=== PATIENT | female | born 1990 | race African-American/Black ===

== ENCOUNTER 2022-12-01 10:32 | Emergency (ER) | payer MEDICAID, SELFPAY ==
[2022-12-01 10:44] VITALS: BP 133/97; PULSE 98; RESP 16; TEMP 36.3; O2SAT 100; BMI 28.3
--- NOTE | 2022-12-01 11:30 | ED.NURSE ---
Patient was discharged home with 2 written prescriptions. One was amoxicillin 500mg TID and Toradol 10mg TID PRN. These were written prescriptions by Dr. Moe as computer system was down. Patient instructed to follow up with her dentist. All questions answered and left via ambulatory.
--- NOTE | 2022-12-09 15:25 | ED.DENTAL ---
HPI - Dental/Oral General Chief complaint: Dental/Oral/Mouth Injury/Pain Stated complaint: jaw pain Time Seen by Provider: 12/01/22 12:19 History of Present Illness HPI Narrative: This patient comes in on December 01 2022 because of dental pain. I am writing this note a week later as this occurred when a time when the computers were not operating properly and was unable to generate a provider note. The patient has been seeing a dentist and has an appointment in the next few days. She has worsening dental pain and states that there is a need for root canal. She has not had any fevers. There is no facial swelling. Related Data Home Medications Medication Instructions Recorded Confirmed No Known Home Medications 12/01/22 12/01/22 Allergies Allergy/AdvReac Type Severity Reaction Status Date / Time metoclopramide [From Reglan] AdvReac Verified 12/01/22 10:43 Review of Systems Status of ROS: Reports: 10 or more systems reviewed and unremarkable except as noted in History and below Narrative: Constitutional: No fevers, no weight gain or loss. Eyes: No discharge. No vision changes. HENT: No congestion, no sore throat, no ear pain. Cardiovascular: No chest pain, no palpitations. Respiratory: No shortness of breath, no wheezes, no cough. Gastrointestinal: No abdominal pain, no vomiting, no diarrhea. Genitourinary: No dysuria, no hematuria. Musculoskeletal: Normal range of motion. Skin: No rashes, no pruritis. Neurological: No dizziness, weakness, sensory change, speech change. Endo/Heme/Allergies: No bruising or bleeding. No polydipsia. Pysch: no suicidality, no anxiety, no insomnia. All other systems reviewed and are negative. PFSH PFSH Social History Smoking Status: Never smoker Do you use any of these nicotine containing products: Vaping Products Second hand tobacco smoke exposure: No How often do you have a drink containing alcohol: never AUDIT-C Alcohol total score: 0 Non-prescribed substance use: marijuana (any form) service: No Exam Narrative: Exam Narrative: Constitutional: Well-developed, well-nourished, no acute distress. HEENT: Normocephalic, atraumatic. Oropharynx has good dentition without any sign of abscess or swelling. Neck: Normal range of motion. Nontender. Supple. Heart: Intact distal pulses. Lungs: No chest discomfort. No wheezes, rhonchi, or rales. Abdomen: Nontender. Back: Normal range of motion. Extremities: Normal range of motion. No injury. Skin: Intact. No rash. Warm. No erythema or pallor. Neurologic: No altered sensation. No weakness. Alert and oriented. Psychiatric: No suicidality. No anxiety or depression. No insomnia. Nursing notes and vitals signs are reviewed. Course Vital Signs Vital signs: Initial Vital Signs Temperature 97.3 F L 12/01/22 10:44 Temperature Source Temporal Artery Scan 12/01/22 10:44 Pulse Rate 98 12/01/22 10:44 Pulse Rhythm Regular 12/01/22 10:44 Pulse Strength 3+ Normal 12/01/22 10:44 Respiratory Rate 16 12/01/22 10:44 Blood Pressure 133/97 H 12/01/22 10:44 Blood Pressure Mean 109 H 12/01/22 10:44 Blood Pressure Position Sitting 12/01/22 10:44 Pulse Oximetry 100 12/01/22 10:44 Oxygen Delivery Method Room Air 12/01/22 10:44 Vital Signs Temperature 97.3 F L 12/01/22 10:44 Pulse Rate 98 12/01/22 10:44 Respiratory Rate 16 12/01/22 10:44 Blood Pressure 133/97 H 12/01/22 10:44 Pulse Oximetry 100 12/01/22 10:44 Oxygen Delivery Method Room Air 12/01/22 10:44 Temperature 97.3 F L 12/01/22 10:44 Pulse Rate 98 12/01/22 10:44 Respiratory Rate 16 12/01/22 10:44 Blood Pressure 133/97 H 12/01/22 10:44 Pulse Oximetry 100 12/01/22 10:44 Oxygen Delivery Method Room Air 12/01/22 10:44 MDM - Dental/Oral MDM Narrative Medical decision making narrative: This patient has been instructed by her dentist to return for a root canal and this process is yet pending. Patient comes in here because of increased dental pain. She is not showing any sign of drainable abscess or other need for intervention other than medication. She did received prescription for amoxicillin and Toradol. Discharge Plan Discharge Clinical Impression: Toothache Patient Disposition: Home, Self-Care Condition: Stable Instructions: Dental Abscess (ED) Additional Instructions: Take medication as prescribed. Follow-up with dentist as scheduled. Return if worsening. Prescriptions: No Action No Known Home Medications Follow Up/Referrals: Provider,Not a Local [Primary Care Provider] -
== END 2022-12-01 12:19 | disposition home or self-care (01) ==
LOC: ED 13:52
PROVIDERS: Emergency Provider Emergency Medicine Emergency Medical Services
DX: K08.89 Other specified disorders of teeth and supporting structures (principal)
CPT/HCPCS: 99283; 99284